=== PATIENT | female | born 1985 | race Caucasian/White ===

== ENCOUNTER 2017-11-11 05:41 | Inpatient (IN) | payer OTHER ==
--- NOTE | 2017-10-30 14:51 | PAT Medication Instructions ---
Service Date Oct 30, 2017. Current Home Medication List Albuterol Hfa (Ventolin Hfa), 2-4 PUFFS INH Q6H PRN for SOB/Wheezing Calcium Carbonate (Tums), 1 TAB PO for Indigestion Cetirizine Hcl (Zyrtec), 10 MG PO QPM Cholecalciferol (Vitamin D-1000), 1 CAP PO QPM Multivit (), 1 TAB PO QPM Medication Instructions For Your Scheduled Surgery - Hold the following medications the morning of surgery: Calcium Carbonate (Tums), 1 TAB PO for Indigestion - Take the following medications the morning of surgery with a sip of water: Albuterol Hfa (Ventolin Hfa), 2-4 PUFFS INH Q6H PRN for SOB/Wheezing (if needed) - Take the following medications as scheduled the night before surgery: Albuterol Hfa (Ventolin Hfa), 2-4 PUFFS INH Q6H PRN for SOB/Wheezing (if needed) Calcium Carbonate (Tums), 1 TAB PO for Indigestion (if needed) Cetirizine Hcl (Zyrtec), 10 MG PO QPM Cholecalciferol (Vitamin D-1000), 1 CAP PO QPM Multivit (), 1 TAB PO QPM If you have any questions please call us at [phone] or [phone] or [phone]
[2017-10-30 16:10] LABS: BASO % 0.1 %; BASO ABS # 0.01 K/uL (0-0.2); EOS % 0.8 %; EOS ABS # 0.07 K/uL (0-0.5); HEMATOCRIT 37.3 % (37-47); HEMOGLOBIN 12.5 g/dL (12.0-16.0); IG# 0.08 K/uL (0.00-0.02); LYMPH % 16.8 %; LYMPH ABS # 1.55 K/uL (1.2-3.4); MEAN CELL VOLUME 92.6 fL (80-100); MEAN CORPUSCULAR HGB CONC 33.5 g/dl (32-36); MEAN PLATELET VOLUME 11.3 fL (7.4-10.4); MONO % 7.3 %; MONO ABS # 0.67 K/uL (0.11-0.59); NEUT % 74.1 %; NEUT ABS # 6.85 K/uL (1.4-6.5); PLATELET COUNT 277 K/uL (130-400); RED CELL DISTRIBUTION WIDTH CV 14.2 % (11.5-14.5); RED CELL DISTRIBUTION WIDTH SD 48.6 fL (36.4-46.3); WHITE BLOOD COUNT 9.23 K/uL (4.8-10.8)
[~2017-11-11] VITALS: Ht 172.7 cm; Wt 144.1 kg
[2017-11-11] VITALS (18 sets, daily range): BP systolic 105–129; BP diastolic 69–77; PULSE 72–86; TEMP 36.4–36.7; O2SAT 94–98; Ht 172.7 cm; Wt 144.1 kg
[~2017-11-11 05:41] MED LIST: CALC500C3 PO; CETI10TA10 PO; CHOL100040 PO; PRENTAB65 PO; VNTHFA/IN INH
[2017-11-11] MEDS ORDERED: CEFAZOLIN IV 3,000 MG in SYRINGE 0 ML IV SCH (06:00)
[2017-11-11] MEDS ORDERED: LACTATED RINGER'S 1000ML 1,000 ML IV SCH ×2 (06:00→09:17)
[2017-11-11] MEDS ORDERED: CITRIC ACID/SODIUM CITRATE 15 ML UDC PO SCH (06:00)
[2017-11-11] MEDS: LACTATED RINGER'S 1000ML 1,000 ML IV SCH ×2 (06:43→14:47)
[2017-11-11 06:50] LABS: BASO % 0.2 %; BASO ABS # 0.02 K/uL (0-0.2); EOS ABS # 0.12 K/uL (0-0.5); HEMATOCRIT 38.1 % (37-47); HEMOGLOBIN 12.8 g/dL (12.0-16.0); IG# 0.13 K/uL (0.00-0.02); LYMPH % 19.5 %; LYMPH ABS # 2.32 K/uL (1.2-3.4); MEAN CORPUSCULAR HEMOGLOBIN 30.9 pg (25-34); MEAN CORPUSCULAR HGB CONC 33.6 g/dl (32-36); MEAN PLATELET VOLUME 11.6 fL (7.4-10.4); MONO % 6.1 %; MONO ABS # 0.72 K/uL (0.11-0.59); NEUT % 72.1 %; NEUT ABS # 8.59 K/uL (1.4-6.5); PLATELET COUNT 269 K/uL (130-400); RED CELL DISTRIBUTION WIDTH CV 14.4 % (11.5-14.5); RED CELL DISTRIBUTION WIDTH SD 48.4 fL (36.4-46.3)
--- NOTE | 2017-11-11 07:12 | History & Physical Bridge Note ---
H&P Re-Evaluation Bridge Note: I have examined the patient, reviewed the History & Physical and in the interval since the performance of the History & Physical I have noted the following changes of clinical significance: No changes noted
[2017-11-11] MEDS ORDERED: FENTANYL CITRATE INJ 50 MCG/1 ML 2 ML VIAL ONE (07:26)
[2017-11-11] MEDS ORDERED: MoRPHine SULFATE PF 1 MG/ML 10 ML AMP/VIAL ONE (07:26)
[2017-11-11] MEDS ORDERED: OXYTOCIN INJ 10 UNITS/ML VIAL ONE (07:27)
[2017-11-11] MEDS ORDERED: PHENYLEPHRINE 100MCG/ML 5ML SYR ONE (07:46)
[2017-11-11] MEDS ORDERED: ONDANSETRON INJ 2 MG/ML 2 ML VIAL ONE (07:46)
[2017-11-11] MEDS ORDERED: NALOXONE HCL INJ 1 MG in SODIUM CHLORIDE 0.9% 1000ML 1,000 ML IV PRN (08:42)
[2017-11-11] MEDS ORDERED: NALOXONE HCL INJ 0.08 MG in SYRINGE 1.8 ML IV PRN (08:42)
[2017-11-11] MEDS ORDERED: SODIUM CHLORIDE 0.9% 1000ML 1,000 ML IV PRN (08:42)
[2017-11-11] MEDS ORDERED: LACTATED RINGER'S 1000ML 500 ML IV PRN (08:42)
[2017-11-11] MEDS ORDERED: NALBUPHINE HCL INJ 10 MG/ML 1ML AMP IV PRN (08:45)
[2017-11-11] MEDS ORDERED: EpHEDrine SULFATE INJ 50 MG/ML AMP IV PRN (08:45)
[2017-11-11] MEDS ORDERED: DiphenhydrAMINE HCL 50 MG/ML VIAL IV PRN (08:45)
[2017-11-11] MEDS ORDERED: ONDANSETRON INJ 2 MG/ML 2 ML VIAL IV PRN (08:45)
[2017-11-11] MEDS ORDERED: MoRPHine SULFATE 2 MG/ML CARP IV PRN (08:45)
[2017-11-11] MEDS ORDERED: MoRPHine SULFATE PF 1 MG/ML 10 ML AMP/VIAL EPI PRN (08:45)
[2017-11-11] MEDS ORDERED: NALOXONE HCL 0.4 MG/1 ML VIAL/CARP IV PRN (08:45)
[2017-11-11] MEDS ORDERED: NO NARCOTICS OR SEDATIVES SCH (08:45)
[2017-11-11] MEDS ORDERED: MEPERIDINE HCL 25 MG/ML CARP IV PRN (08:45)
--- NOTE | 2017-11-11 09:17 | [facility] Post Operative Brief Note ---
Immediate Operative Summary Operative Date Nov 11, 2017. Pre-Operative Diagnosis Term :Breech Presentation Post-Operative Diagnosis Same Procedure(s) Performed Primary Low Transverse Caesarean Section; Delivery of a live female child at 0803, left ovarian cystectomy Surgeon Dr Lawrence Dental Services Director Surgeon(s) Dr De Luna Estimated Blood Loss 700 cc Findings Consistent with Post-Op Diagnosis Fluids (cc crystalloids) 2700 ml Specimens cord blood placenta-exam private cord blood and tissue collection left ovarian cyst and fluid from cyst Drains tot 200 ml Anesthesia Type Spinal Complication(s) none Disposition Disposition: L&D Overlapping Procedure I was present for: entire case
[2017-11-11] MEDS ORDERED: LANOLIN OINT EXT PRN (09:30)
[2017-11-11] MEDS ORDERED: SUPERCREAM 0.870 % 15GM JAR EXT PRN (09:30)
[2017-11-11] MEDS ORDERED: MEASLES, MUMPS & RUBELLA VIRUS VIAL SQ. ONE (09:30)
[2017-11-11] MEDS ORDERED: DIPHTHERIA/TETANUS/PERTUSSIS 0.5 ML SYR/VIAL IM. ONE (09:30)
[2017-11-11] MEDS ORDERED: SENNA 8.6 MG TAB PO PRN (09:30)
[2017-11-11] MEDS ORDERED: CEFAZOLIN IV 3,000 MG in DEXTROSE 5% 50ML 50 ML IV SCH (09:30)
[2017-11-11] MEDS ORDERED: HYDROCORTISONE ACETATE 25 MG SUPP PR PRN (09:30)
[2017-11-11] MEDS ORDERED: BENZOCAINE 20% AER SPR 82.5 GM CAN EXT PRN (09:30)
[2017-11-11] MEDS ORDERED: MAGNESIUM HYDROXIDE SUSP 30 ML UDC PO PRN (09:30)
[2017-11-11] MEDS: OXYTOCIN INJ 20 UNITS in LACTATED RINGER'S 1000ML 1,000 ML IV SCH ×2 (10:32→18:57)
--- NOTE | 2017-11-11 10:57 | Anesthesiology Progress Note ---
Anesthesia Post Op Note Date & Time Nov 11, 2017 at 10:56 Notes Mental Status: alert / awake / arousable, participated in evaluation Pt Amnestic to Procedure: Yes Nausea / Vomiting: adequately controlled Pain: adequately controlled Airway Patency, RR, SpO2: stable & adequate BP & HR: stable & adequate Hydration State: stable & adequate Neuraxial Anesthesia: was administered, sensory block is resolving Anesthetic Complications: no major complications apparent
--- NOTE | 2017-11-11 11:42 | OPERATIVE REPORT ---
DATE OF OPERATION: 11/11/2017 PREOPERATIVE DIAGNOSES: Patient is a 32-year-old G1, P0 at 39 weeks and 1 day of gestation with persistent breech presentation at term, declined external cephalic version and left ovarian simple cyst. POSTOPERATIVE DIAGNOSES: Patient is a 32-year-old G1, P0 at 39 weeks and 1 day of gestation with persistent breech presentation at term, declined external cephalic version and left ovarian simple cyst. PROCEDURE: Primary low transverse via Pfannenstiel skin incision, delivery of a viable female infant and left ovarian cystectomy. SURGEON: Barron Donato MD. GUIDEMAN: Darius De Luna MD. ESTIMATED BLOOD LOSS: 700 mL FLUIDS: 2700 mL DRAINS: Jhaveri drained 200 mL of clear urine. ANESTHESIA: Spinal, Dr. Ryan. COMPLICATIONS: None. FINDINGS: Baby was a viable female infant in the jona breech presentation, Apgars 8/9, delivered at 08:03 a.m. Weight was 4190 grams. Maternal findings, normal uterus, fallopian tubes and right ovary and there was a simple cyst in the left ovary which was about 8 x 10 cm in size. DESCRIPTION OF PROCEDURE: The patient was taken to the operating room where spinal anesthesia was given without difficulty. She was placed in dorsal supine position with a leftward tilt. She was prepared and draped in usual sterile fashion. A Pfannenstiel skin incision was made and carried through to the underlying layer of fascia with the Bovie. Fascia was incised in the midline. Incision was extended laterally with the help of Garcia scissors. Upper aspect of the fascial incision was then grasped with 2 Uziel clamps, elevated, underlying rectus muscles were dissected off sharply with Garcia scissors and the lower aspect of the fascial incision was then grasped with 2 Uziel clamps, elevated, and the rectus muscles were dissected sharply with Garcia scissors. Rectus muscles were in the midline. Peritoneum was identified, entered bluntly with fingers. Peritoneal incision was extended superiorly and inferiorly with good visualization of the bladder. Bladder blade was inserted and vesicouterine peritoneum was identified, grasped with pickups, entered sharply with Metzenbaum scissors and the bladder flap was created digitally and bladder blade was reinserted to retract the bladder. Lower uterine segment was incised in a transverse fashion. Incision was extended laterally with the help of fingers and amniotic bag was ruptured. Clear fluid was obtained. Then the baby's buttocks were held and brought to the incision and delivered without difficulty and then legs and then trunk and then arms in flexion position and then head without difficulty. Mouth and nose were suctioned. Cord was clamped x2 and cut. It was 3 vessels cord. Baby was handed to the waiting netsuite consultant and nursery team. Then cord blood was obtained. Per patient request cord blood was collected into [facility] collection kit. Then placenta was delivered manually as intact and complete. Uterus was exteriorized, cleared of all clots and debris. Fundus was firm. The uterine incision was repaired with 0 Vicryl in a running locked fashion and a second imbricating layer was placed with another 0 Vicryl in a running locked fashion. Excellent hemostasis was achieved. Then the visceral peritoneum was reapproximated with 2-0 chromic in a running fashion. The right ovary and fallopian tube was visualized to be normal. The left ovary was in the field and enlarged with clear fluid filled simple cyst , about 8x10 cm. The with a large bore needle, the cyst fluid was drained and sent for cytology and then ovarian capsule was incised with the Metzenbaum scissors and then the cyst capsule was dissected off from the ovarian capsule which was stretched and thinned due to enlarge cyst in it. Cyst capsule was dissected off completely from the ovary and sent to the pathology. The ovarian bed was oozing small blood, the small vessels were coagulated with the tip of Bovie and then ovary was irrigated and then FloSeal was placed for hemostasis . Excellent hemostasis was achieved. Then ovarian tissue was reapproximated/closed with 3-0 Vicryl in a running fashion. It was hemostatic. Uterine Incision was checked to be again hemostatic. Uterus was returned to the abdomen. Pelvis was irrigated with warm normal saline and suctioned and then parietal peritoneum was reapproximated with 3-0 Vicryl in a running fashion. Rectus muscles were reapproximated with the same suture in a running fashion. The rectus muscles and overlying fascia were checked to be hemostatic. The rectus fascia was reapproximated with running fashion with #1 Vicryls starting from both corners meeting in the midline and the subcuticular fat tissue was reapproximated with 2-0 Vicryl in a running fashion. Skin was closed with 4-0 Monocryl in a subcuticular fashion. The patient tolerated the procedure well. Sponge, lap, needle count was correct x3. She was given 3 grams of cefazolin before surgery. She was taken to recovery room in stable condition. No complications happened and I was present and Dr. De Luna was present during whole procedure. I attest to the content of the Intraoperative Record and any orders documented therein. Any exceptions are noted below. CARLA
[2017-11-11] MEDS: KETOROLAC TROMETHAMINE 30 MG/ML VIAL IV. PRN ×2 (12:17→19:47)
[2017-11-11] MEDS: SIMETHICONE 80 MG CHEW PO SCH ×3 (12:18→19:46)
[2017-11-11] MEDS ORDERED: ACETAMINOPHEN IV 650 MG in EMPTY BAG 0 ML IV PRN (13:00)
--- NOTE | 2017-11-11 15:21 | OB/GYN Progress Note ---
CENTERLESS GRINDER TENDER Progress Note Date of Service: Nov 11, 2017. Postop check Patient is seen and examined Feels well, no complaints Pain is under control with meds No CP/ SOB/ Dizziness/ N&V/ VB/ Leg pain Not OOB yet Tolerating clears Explained about the surgery and findings Her O2 sats were low to 88% while sleeping Patient has h/o snoring and feeling " choked" at time at night for the last 3-4 weeks of Never diagnosed with GLENYS. h/o exercise induced asthma, uses inhaler 1-2 times a year. O2 sats 98% on RA while awake. Date Time Temp Pulse Resp B/P (MAP) Pulse Ox O2 Delivery O2 Flow Rate FiO2 11/11/17 13:25 77 16 97 Room Air 11/11/17 13:15 36.4 72 16 122/75 (91) 97 Room Air 11/11/17 13:15 16 97 11/11/17 12:30 16 96 11/11/17 12:15 36.4 79 16 116/72 (87) 96 Room Air 11/11/17 11:35 16 96 11/11/17 11:35 96 Room Air 11/11/17 11:35 36.4 79 16 116/69 (85) 96 Room Air 11/11/17 11:35 96 Room Air PE: General: Alert, orientedx3, NAD CVS: S1S2 RRR Lungs: CTAB Abd: soft, NT, ND, BS+, Dressing C/D/I No VB Ext: NT, no edema, SCD's on AP: 32 yo female with class III obesity, s/p P Csection and left ovarian cystectomy , pod#0 VSS Afebrile doing well O2 sats lower while sleep, most likely GLENYS, seen by respiratory therapist Will keep upright and nasal O2 while sleeping, avoid narcotics, Toradol and IV tylenol for pain Continue to routine postop care Encourage PO intake, may ambulate D/C ott in am
[2017-11-11] MEDS: CEFAZOLIN IV 3,000 MG in SYRINGE 0 ML IV SCH ×2 (15:57→23:36)
[2017-11-11] MEDS: DOCUSATE SODIUM 100 MG CAP PO SCH (19:46)
[2017-11-12] VITALS (8 sets, daily range): BP systolic 98–122; BP diastolic 62–77; PULSE 88–101; TEMP 36.7–37.2; O2SAT 94–98
[2017-11-12] MEDS: KETOROLAC TROMETHAMINE 30 MG/ML VIAL IV. PRN (01:41)
[2017-11-12] MEDS ORDERED: PROMETHAZINE HCL INJ 25 MG in SODIUM CHLORIDE 0.9% 50ML 50 ML IV PRN (02:00)
[2017-11-12] MEDS ORDERED: OXYCODONE/ACETAMINOPHEN 5-325 TAB PO PRN (02:00)
[2017-11-12] MEDS ORDERED: DC INTRASPINAL MORPHINE ONE (02:00)
[2017-11-12] MEDS ORDERED: KETOROLAC TROMETHAMINE 30 MG/ML VIAL IV. PRN (02:00)
[2017-11-12] MEDS ORDERED: DiphenhydrAMINE HCL 50 MG/ML VIAL IV PRN (02:00)
[2017-11-12] MEDS ORDERED: ONDANSETRON INJ 2 MG/ML 2 ML VIAL IV PRN (02:00)
[2017-11-12] MEDS ORDERED: MEPERIDINE HCL 50 MG/ML CARP IV PRN ×2 (02:00)
[2017-11-12 06:25] LABS: BASO % 0.1 %; BASO ABS # 0.01 K/uL (0-0.2); EOS % 0.8 %; EOS ABS # 0.09 K/uL (0-0.5); HEMOGLOBIN 11.3 g/dL (12.0-16.0); IG# 0.07 K/uL (0.00-0.02); LYMPH % 12.3 %; LYMPH ABS # 1.43 K/uL (1.2-3.4); MEAN CELL VOLUME 91.6 fL (80-100); MEAN CORPUSCULAR HEMOGLOBIN 30.5 pg (25-34); MEAN CORPUSCULAR HGB CONC 33.2 g/dl (32-36); MEAN PLATELET VOLUME 10.9 fL (7.4-10.4); MONO % 5.9 %; MONO ABS # 0.68 K/uL (0.11-0.59); NEUT % 80.3 %; NEUT ABS # 9.33 K/uL (1.4-6.5); PLATELET COUNT 196 K/uL (130-400); RED CELL DISTRIBUTION WIDTH CV 14.3 % (11.5-14.5); RED CELL DISTRIBUTION WIDTH SD 48.5 fL (36.4-46.3); WHITE BLOOD COUNT 11.61 K/uL (4.8-10.8)
--- NOTE | 2017-11-12 07:36 | Progress Note ---
Subjective Nov 12, 2017. Subjective conversation w/ patient Ambulation: limited ambulation Voiding: no voiding problems Passing Gas: No Diet Tolerance: Clear Liquids Lochia: Small Feeding Type: Breast Feeding Review of Systems Constitutional: + fever Objective Vital Signs Date Time Temp Pulse Resp B/P (MAP) Pulse Ox O2 Delivery O2 Flow Rate FiO2 11/12/17 06:00 98 Room Air 11/12/17 05:40 96 Nasal Cannula 2.0 11/12/17 03:20 37.2 88 18 109/75 (86) 97 Room Air 11/12/17 00:05 18 94 11/11/17 23:05 36.7 86 18 115/76 (89) Room Air 11/11/17 23:05 18 95 11/11/17 23:00 96 Room Air 11/11/17 22:12 18 98 11/11/17 22:11 98 Nasal Cannula 2.0 11/11/17 22:05 95 Nasal Cannula 2.0 11/11/17 21:15 18 95 11/11/17 20:00 18 95 11/11/17 20:00 36.7 75 18 105/71 (82) Room Air 11/11/17 20:00 95 Room Air 11/11/17 19:15 18 95 11/11/17 18:30 16 94 11/11/17 17:30 16 95 11/11/17 16:10 36.5 81 16 129/77 (94) 95 Room Air 11/11/17 16:10 16 95 11/11/17 15:30 16 96 11/11/17 14:30 16 94 11/11/17 13:25 77 16 97 Room Air 11/11/17 13:15 36.4 72 16 122/75 (91) 97 Room Air 11/11/17 13:15 16 97 11/11/17 12:30 16 96 11/11/17 12:15 36.4 79 16 116/72 (87) 96 Room Air 11/11/17 11:35 16 96 11/11/17 11:35 96 Room Air 11/11/17 11:35 36.4 79 16 116/69 (85) 96 Room Air 11/11/17 11:35 96 Room Air Physical Exam General Appearance: WELL-APPEARING Respiratory/Chest: lungs clear Abdomen: normal bowel sounds, non tender Fundus: Firm, Non-Tender Incision Description: Clean, Dry & Intact Extremities: no pedal edema, no calf tenderness Laboratory Results Last 24 Hours Test 11/12/17 06:08 White Blood Count 11.61 K/uL Red Blood Count 3.71 M/uL Hemoglobin 11.3 g/dL Hematocrit 34.0 % Mean Corpuscular Volume 91.6 fL Mean Corpuscular Hemoglobin 30.5 pg Mean Corpuscular Hemoglobin Concent 33.2 g/dl Platelet Count 196 K/uL Mean Platelet Volume 10.9 fL Neutrophils (%) (Auto) 80.3 % Lymphocytes (%) (Auto) 12.3 % Monocytes (%) (Auto) 5.9 % Eosinophils (%) (Auto) 0.8 % Basophils (%) (Auto) 0.1 % Neutrophils # (Auto) 9.33 K/uL Lymphocytes # (Auto) 1.43 K/uL Monocytes # (Auto) 0.68 K/uL Eosinophils # (Auto) 0.09 K/uL Basophils # (Auto) 0.01 K/uL RDW Standard Deviation 48.5 fL RDW Coefficient of Variation 14.3 % Immature Granulocyte % (Auto) 0.6 % Immature Granulocyte # (Auto) 0.07 K/uL Assessment and Plan Post-Op Day#: 1 Continue Routine Care: bandage removed
[2017-11-12] MEDS: DOCUSATE SODIUM 100 MG CAP PO SCH ×2 (09:39→20:13)
[2017-11-12] MEDS: PRENATAL VITAMIN TAB PO SCH (09:39)
[2017-11-12] MEDS: SIMETHICONE 80 MG CHEW PO SCH ×4 (09:39→20:14)
[2017-11-12] MEDS: FERROUS SULFATE 325 MG TAB PO SCH (09:39)
[2017-11-12] MEDS: CHOLECALCIFEROL 1000 INTER.UNIT TAB PO SCH (09:39)
[2017-11-12] MEDS: CETIRIZINE HCL 10 MG TAB PO SCH (09:39)
[2017-11-12] MEDS: OXYCODONE/ACETAMINOPHEN 5-325 TAB PO PRN ×4 (09:40→22:35)
[2017-11-12] MEDS: IBUPROFEN 600 MG TAB PO PRN ×4 (09:41→22:34)
[2017-11-12] MEDS: AMOXICILLIN/CLAVULANATE TAB 875 MG TAB PO SCH (17:44)
[2017-11-12] MEDS ORDERED: BISACODYL 5 MG TABEC PO ONE (22:00)
[2017-11-13 06:39] LABS: HEMATOCRIT 32.8 % (37-47); HEMOGLOBIN 10.7 g/dL (12.0-16.0)
[2017-11-13] MEDS: IBUPROFEN 600 MG TAB PO PRN ×4 (06:46→21:01)
[2017-11-13] MEDS: OXYCODONE/ACETAMINOPHEN 5-325 TAB PO PRN ×5 (06:46→21:01)
--- NOTE | 2017-11-13 07:41 | OB/GYN Progress Note ---
NET DEVELOPMENT MANAGER Progress Note Date of Service: Nov 13, 2017. Patient is seen and examined. She feels well, no complaints. Pain is under control with oral meds. Ambulating without dizziness Voiding without difficulty Tolerating regular diet with out N&V Flatus + BM neg Bleeding is minimal No fever/ chills/ CP/ SOB/ N&V/ Leg pain Breast feeding, milk has not come yet, supplementing with formula and pumping Date Time Temp Pulse Resp B/P (MAP) Pulse Ox O2 Delivery O2 Flow Rate FiO2 11/12/17 23:30 36.9 101 20 122/68 (86) Room Air 11/12/17 23:30 Room Air 11/12/17 16:00 36.8 100 16 98/62 (74) 97 Room Air 11/12/17 08:15 96 Room Air 11/12/17 08:01 36.7 90 20 115/77 (90) 96 Room Air Last 24 Hours Test 11/13/17 06:27 Hemoglobin 10.7 g/dL Hematocrit 32.8 % PE: General: Alert, orientedx3, NAD CVS: S1S2 RRR Lungs; CTAB Abd: soft, NT, ND, BS+, fundus firm, below Umbilicus Incision: Clean, dry, intact Perineum intact, Lochia rubra minimal Ext; NT, no edema AP: 32 yo s/p C Section, pod# 2 VSS Afebrile doing well Continue routine postop care Encourage ambulation, PO intake All questions were answered D/C home tomorrow
[2017-11-13 07:45] VITALS: BP 119/77; PULSE 93; TEMP 36.5; O2SAT 97
[2017-11-13] MEDS: SIMETHICONE 80 MG CHEW PO SCH ×4 (08:00→20:00)
[2017-11-13] MEDS: CETIRIZINE HCL 10 MG TAB PO SCH (08:14)
[2017-11-13] MEDS: DOCUSATE SODIUM 100 MG CAP PO SCH ×2 (08:14→19:51)
[2017-11-13] MEDS: CHOLECALCIFEROL 1000 INTER.UNIT TAB PO SCH (08:14)
[2017-11-13] MEDS: PRENATAL VITAMIN TAB PO SCH (08:14)
[2017-11-13] MEDS: AMOXICILLIN/CLAVULANATE TAB 875 MG TAB PO SCH ×2 (08:14→17:53)
[2017-11-13] MEDS: FERROUS SULFATE 325 MG TAB PO SCH (08:15)
[2017-11-13] MEDS ORDERED: BISACODYL 10 MG SUPP PR PRN (09:30)
[2017-11-13 16:15] VITALS: BP 113/75; PULSE 91; TEMP 36.7
[2017-11-13 20:00] VITALS: BP 119/81; PULSE 84; TEMP 36.6; O2SAT 98
[2017-11-13 23:45] VITALS: BP 118/76; PULSE 85; TEMP 36.6; O2SAT 98
[2017-11-14] MEDS: IBUPROFEN 600 MG TAB PO PRN ×3 (01:04→13:05)
[2017-11-14] MEDS: OXYCODONE/ACETAMINOPHEN 5-325 TAB PO PRN ×3 (01:06→13:06)
[2017-11-14 07:52] VITALS: BP 107/69; PULSE 92; TEMP 36.5; O2SAT 96
[2017-11-14 08:00] VITALS: O2SAT 96
[2017-11-14] MEDS: SIMETHICONE 80 MG CHEW PO SCH ×2 (08:00→12:00)
[2017-11-14] MEDS: PRENATAL VITAMIN TAB PO SCH (08:05)
[2017-11-14] MEDS: CETIRIZINE HCL 10 MG TAB PO SCH (08:05)
[2017-11-14] MEDS: AMOXICILLIN/CLAVULANATE TAB 875 MG TAB PO SCH (08:05)
[2017-11-14] MEDS: DOCUSATE SODIUM 100 MG CAP PO SCH (08:05)
[2017-11-14] MEDS: FERROUS SULFATE 325 MG TAB PO SCH (08:05)
[2017-11-14] MEDS: CHOLECALCIFEROL 1000 INTER.UNIT TAB PO SCH (08:05)
[2017-11-14] MEDS ORDERED: SODIUM CHLORIDE 0.65% NA SOLN 45 ML (OCEAN) ONE (09:01)
--- NOTE | 2017-11-14 11:10 | Progress Note ---
Subjective Nov 14, 2017. Subjective conversation w/ patient Voiding: no voiding problems Passing Gas: Yes Diet Tolerance: Regular Diet Lochia: Moderate Feeding Type: Breast Feeding Comment: Pain controlled Review of Systems Constitutional: No fever, No chills, No sweats, No weight loss, No weakness, No fatigue, No problem reported Respiratory: No cough, No sputum, No wheezing, No shortness of breath, No dyspnea on exertion, No dyspnea at rest, No hemoptysis, No problem reported Cardiac: No chest pain, No orthopnea, No PND, No edema, No claudication, No palpitations, No problem reported Breast: No see HPI, No breast lump, No change in shape, No nipple discharge, No breast pain, No problem reported Abdomen: No pain, No nausea, No vomiting, No diarrhea, No constipation, No GI bleeding, No problem reported Female : No see HPI, No dysuria, No urinary frequency, No hematuria, No incontinence, No abnormal vaginal bleeding, No vaginal discharge, No problem reported Objective Vital Signs Date Time Temp Pulse Resp B/P (MAP) Pulse Ox O2 Delivery O2 Flow Rate FiO2 11/14/17 08:00 96 Room Air 11/14/17 07:52 36.5 92 16 107/69 (82) 96 Room Air 11/13/17 23:45 36.6 85 20 118/76 (90) 98 Room Air 11/13/17 23:45 Room Air 11/13/17 20:00 36.6 84 18 119/81 (94) 98 Room Air 11/13/17 16:15 36.7 91 18 113/75 (88) Room Air 11/13/17 16:15 Room Air Physical Exam General Appearance: WELL-APPEARING, NO APPARENT DISTRESS Fundus: Firm Incision Description: Clean, Dry & Intact Assessment and Plan Problem List S/P Primary section doing well Discharge home Post-Op Day#: 1 Continue Routine Care: Discharge home
[2017-11-14] MEDS ORDERED: OXYC-57 PO (11:20)
--- NOTE | 2017-11-14 11:23 | Discharge Instructions ---
Discharge Instructions Date of Service Nov 14, 2017. Admission Reason for Admission: Breech Discharge Discharge Diagnosis / Problem: Breech fetus Discharge Goals Goal(s): Routine recovery after Activity Recommendations Activity Limitations: per Instructions/Follow-up section Lifting Limitations: no more than 10 pounds Exercise/Sports Limitations: until after follow-up appointment May Resume Sexual Activity: after follow-up appointment Shower/Bathe: keep incision dry . Instructions / Follow-Up Instructions / Follow-Up 1 week Current Hospital Diet Patient's current hospital diet: Regular OB Diet Discharge Diet Recommended Diet: Regular Diet Procedures Procedures Performed: Primary Low Transverse Caesarean Section; Delivery of a live female child at 0803, left ovarian cystectomy Pending Studies Studies pending at discharge: no Medical Emergencies . Who to Call and When: Medical Emergencies: If at any time you feel your situation is an emergency, please call 911 immediately. . Non-Emergent Contact Non-Emergency issues call your: Sonar Subsystem Equipment Operator Call Non-Emergent contact if: you have a fever, your pain is not controlled, wound has increased drainage, wound has increased redness, wound has increased pain . . "Provider Documentation" section prepared by Janeen Ramírez. .
[2017-11-14 15:50] VITALS: BP_DIAS 69; PULSE 92; TEMP 36.5
== END 2017-11-14 15:45 | disposition home or self-care (01) | DRG 766 ==
LOC: C.LD 05:41 → EDSTATUS 07:30 → C.OBG 11:31
PROVIDERS: ADMIT Obstetrics & Gynecology; ATTEND Obstetrics & Gynecology
PROC: 0UB10ZX Excision of Left Ovary, Open Approach, Diagnostic (ICD-10-PCS; principal; 2017-11-11 07:30)
PROC: 10D00Z1 Extraction of Products of Conception, Low, Open Approach (ICD-10-PCS; principal; 2017-11-11 07:30)
DX: O32.1XX0 Maternal care for breech presentation, not applicable or unspecified (principal); O34.83 Maternal care for other abnormalities of pelvic organs, third trimester; O99.214 Obesity complicating childbirth; N83.202 Unspecified ovarian cyst, left side; Z37.0 Single live birth; Z3A.39 39 weeks gestation of pregnancy

== ENCOUNTER 2022-06-18 16:31 | Inpatient (IN) ==
[2022-06-18 17:21] LABS: Basophils # (auto) 0.01 K/uL (0-0.2); Basophils % (auto) 0.2 %; Hematocrit (blood only) 40.1 % (37.0-47.0); Hemoglobin 13.6 g/dl (12.0-16.0); Immature Granulocytes # (auto) 0.02 K/uL (0.01-0.20); Immature Granulocytes % (auto) 0.4 %; Lymphocytes # (auto) 0.42 K/uL (1.2-3.4); Lymphocytes % (auto) 8.2 %; Mean Corpuscular Hgb Conc 33.9 g/dL (32.0-36.0); Mean Corpuscular Volume 88.5 fL (80.0-100.0); Mean Platelet Volume 10.9 fL (9.4-12.4); Monocytes # (auto) 0.12 K/uL (0.11-0.59); Monocytes % (auto) 2.3 %; Neutrophils # (auto) 4.55 K/uL (1.40-6.50); Neutrophils % (auto) 88.9 %; Platelet Count 269 K/uL (130-400); RDW Coefficient of Variation 13.2 % (11.5-14.5); RDW Standard Deviation 42.9 fL (36.4-46.3); Red Blood Count 4.53 M/uL (4.20-5.40); White Blood Count 5.12 K/ul (4.8-10.8)
[2022-06-18 17:34] LABS: Albumin Globulin Ratio 1.4 (0.9-2); Albumin Level 4.4 gm/dl (3.4-5.0); BUN Creatinine Ratio 10.4 (10-20); Bilirubin,Total 0.6 mg/dl (0.2-1.0); Calcium 8.6 mg/dl (8.5-10.1); Est GFR (African American) 87.6 ml/min; Est GFR (Non-African American) 75.6 ml/min; Globulin 3.2 gm/dl (2.5-4.0); Potassium 4.1 mmol/L (3.5-5.1); Total Protein 7.6 gm/dl (6.0-8.3)
[2022-06-18 17:40] LABS: Troponin I High Sensitivity 3.7 pg/ml (0-14)
[2022-06-18 17:53] LABS: Partial Thromboplastin Ratio 1.1; Partial Thromboplastin Time 30.5 Seconds (21.0-31.0); Prothrombin Time 10.9 Seconds (9.0-12.0)
--- NOTE | 2022-06-18 18:26 | XRay Report ---
SINGLE VIEW CHEST CLINICAL HISTORY: Dyspnea FINDINGS: 2 AP, portable, upright chest radiographs are obtained. No prior studies are available for comparison at the time of dictation. The cardiomediastinal silhouette is unremarkable. The lungs and pleural spaces are clear. No pneumothorax is seen. The bony thorax is grossly intact. IMPRESSION: No active disease in the chest. ACT 112: Negative or not required by law. Electronically signed by: Edwardo Owens M.D. 06/18/2022 6:23 PM
[2022-06-18] MEDS ORDERED: methylPREDNISolone 125 MG/2 ML VIAL IV STA (18:36)
[2022-06-18 18:58] LABS: D Dimer 590 ug/L FEU (0-500)
--- NOTE | 2022-06-18 19:01 | Emergency Department Note ---
Impression & Plan Acute dyspnea, Acute respiratory failure with hypoxia, Pneumonia ED Provider Note HISTORY OF PRESENT ILLNESS: Patient is a 37-year-old female presenting with shortness of breath. Patient reports that she has a history of asthma. Developed a low-grade fever, generalized body aches and some mild shortness of breath over the weekend. She tested negative for COVID and the flu on outpatient testing. She was at her primary care provider's office and referred to the emergency department due to her audible wheezing and hypoxia on room air. Patient denies any DVT or PE history. She denies any history of OCP use. Denies any chest pain. She reports she feels like she cannot take a deep breath. Reports feeling a "rattling" in her chest when she exhale. Denies any lower extremity edema. Patient has had a nonproductive cough for the last 3 days. ROS: as above PHYSICAL EXAM: Constitutional: Patient appears in no acute distress. HENT: Head: Normocephalic and atraumatic. Eyes: EOMI, PERRL Mouth/Throat: Mucous membranes moist. Neck: Trachea midline. Neck supple. Cardiovascular: RRR, No murmurs, rubs or gallops. Intact distal pulses. Pulmonary/Chest: No respiratory distress. Breath sounds clear and equal b ilaterally. No wheezes or rales. Patient is on 2L nasal cannula with saturations of 94% Abdominal: BS +. Abdomen soft, no tenderness, rebound or guarding. Back: No midline spinal tenderness, no paraspinal tenderness, no CVA tenderness. Musculoskeletal: No edema, tenderness or deformity noted. Skin: Warm and dry. No rash, erythema, pallor or cyanosis Psychiatric: Appropriate mood and affect for situation. Neurological: Alert and keenly responsive. CN II-XII grossly intact, moving all extremities equally and fully. MDM: - Vitals signs showed hypoxia and hypertension. Patient was placed on supplemental oxygen. - History obtained via patient. Patient presents with shortness of breath. Reports having progressively worsening shortness of breath over the last 3 days. She had body aches and low-grade fevers 3 days ago and had a negative COVID and flu test. She was seen by her primary doctor today and had audible wheezing and was hypoxic and referred to the emergency department. Patient denies any OCP use. Denies any lower extremity edema. Denies any DVT or PE history. She has a prior history of asthma. - Chronic conditions affecting care: asthma - Differential diagnoses include, but are not limited to: acute coronary syndrome; asthma exacerbation; pulmonary edema; pulmonary embolism; pneumonia; pneumothorax; viral syndrome - Order placed for continuous cardiac monitoring. At this time, monitor showed rate of 100 bpm with normal sinus rhythm, per my interpretation. - External medical records reviewed. PCPs note shows that the patient had oxygen saturations of 92 to 93% on room air in clinic today. - EKG reviewed by myself showed normal sinus rhythm. Rate 101 bpm. QTc 435. No acute ischemic changes. No previous EKG to compare to. - Laboratory workup interpreted by myself showed normal WBC; stable e lectrolytes; normal troponin - CXR negative for acute cardiopulmonary pathology, per my interpretation - Regarding PE, the patient is low risk by Wells' criteria. D dimer obtained and elevated. CT PE chest performed and showed multilobular pneumonia (L > R). - Procalcitonin ordered. IV rocephin and azithromycin ordered for pneumonia treatment. - Patient given 125 mg IV solumedrol and a duoneb treatment in the ER. - Attempted to wean patient from supplemental oxygen. However, on room air her saturations decreased to 85% with good wave form. She was placed back on 3L NC. - [employer] respiratory panel ordered to assess for source. - Discussion was had with social scientist about patient's case and need for admission - Hospitalist, Dr. Xiao, consulted for admission - Patient admitted to [facility] for further evaluation and management. ASSESSMENT AND PLAN: Diagnosis: dyspnea; acute hypoxic respiratory failure; multilobular pneumonia Plan: admit Past Med/Surg History Medical History (Updated 06/18/22 @ 20:12 by Radha Samson MD) Acid reflux Asthma exercise induced - rarely uses PRN inh Dermatographic urticaria Need for rhogam due to Rh negative mother Obesity Obesity affecting Supervision of normal intrauterine in multigravida Surgical History History of laparoscopy Previous delivery affecting S/P section S/P cholecystectomy S/P tonsillectomy S/P wisdom tooth extraction Status post breast reduction Family History Grandmother (Paternal) Colorectal cancer Mother Hypertension Father Hypertension Grandmother (Maternal) Myocardial infarction Family/Other Breast cancer Uncle Aneurysm Other No family history of adverse response to anesthesia Denies family history of Ovarian cancer Prostate cancer Social History Smoking Status: Never smoker Second Hand Exposure: No; Hx Alcohol Use: No Hx Substance Use: No Preferred Language: Slovak Communication Ability: Effective Transmitter Engineer In Charge Required: No Beliefs That Will Affect Care: None marital status: Current Living Situation: Spouse and Family Current Living Situation Comment: no pets current occupational status: unemployed current occupation: homemaker Feels Safe at Home: Yes Childhood Exposure to Second-Hand Smoke: No Dental Care, Regularly: Yes Physical Activity Frequency: Does not Exercise Seatbelt Use: always Sunscreen Use: Yes Assistive Devices: None Allergies Allergies Allergy/AdvReac Type Severity Reaction Status Date / Time adhesive Allergy Unknown redness Verified 06/18/22 09:36 Bactrim Allergy Unknown lip Verified 11/11/17 12:17 swelling/hives phenazopyridine Allergy Unknown swelling Verified 06/18/22 09:36 sulfamethoxazole Allergy Unknown lip Verified 06/18/22 09:36 swelling/hives trimethoprim Allergy Unknown lip Verified 06/18/22 09:36 swelling/hives robyn saline eye drops AdvReac Unknown eye/eyelid Uncoded 06/18/22 09:36 redness Home Meds Home Medications Medication Instructions Recorded Confirmed cetirizine 10 mg tablet (Zyrtec) 10 mg PO HS 11/16/18 06/18/22 Previous Rx's Medication Instructions Recorded albuterol sulfate 90 mcg/actuation 2 puff inhalation Q6H PRN wheezing 06/05/22 aerosol inhaler (Proventil HFA) #6.7 grams fluticasone propionate 50 1 spray intranasal DAILY PRN nasal 06/05/22 mcg/actuation nasal congestion #16 grams spray,suspension (Flonase Allergy Relief) benzonatate 200 mg capsule 200 mg PO TID PRN cough #30 caps 06/18/22 prednisone 20 mg tablet 40 mg PO DAILY #10 tabs 06/18/22 Results & Data (ED) Vital Signs Vital Signs - 24 hr 06/18/22 16:37 06/18/22 17:41 06/18/22 16:40 Temperature 36.5 C Temperature Source Temporal Artery Scan Pulse Rate 105 H Pulse Rate [Finger] 99 H Respiratory Rate 20 20 Respiratory Effort / Characteristics Non-Labored Spontaneous Non-Labored Spontaneous Respiratory Depth Normal Normal Blood Pressure 135/80 Blood Pressure [Left Arm] 183/84 H Blood Pressure Mean 98 Blood Pressure Mean [Left Arm] 117 Pulse Oximetry 92 93 Oxygen Delivery Method Room Air Room Air Room Air Oxygen Flow Rate Sepsis Recent Fever Within 48 Hours No Sepsis New/Unexplained Change in Mental Status N/A Sepsis Action Taken by Nursing No Action Required 06/18/22 18:00 06/18/22 18:18 06/18/22 18:51 Temperature Temperature Source Pulse Rate Pulse Rate [Finger] 90 Respiratory Rate 20 Respiratory Effort / Characteristics Non-Labored Spontaneous Respiratory Depth Normal Blood Pressure Blood Pressure [Left Arm] 145/78 H Blood Pressure Mean Blood Pressure Mean [Left Arm] 100 Pulse Oximetry 88 L 94 Oxygen Delivery Method Room Air Nasal Cannula Nasal Cannula Oxygen Flow Rate 1 1 2 Sepsis Recent Fever Within 48 Hours Sepsis New/Unexplained Change in Mental Status Sepsis Action Taken by Nursing 06/18/22 19:33 06/18/22 19:35 06/18/22 19:44 Temperature Temperature Source Pulse Rate 95 H Pulse Rate [Finger] 100 H 109 H Respiratory Rate 24 22 Respiratory Effort / Characteristics Non-Labored Respiratory Depth Normal Blood Pressure Blood Pressure [Left Arm] 130/63 Blood Pressure Mean Blood Pressure Mean [Left Arm] 85 Pulse Oximetry 100 94 Oxygen Delivery Method Nebulizer Room Air Oxygen Flow Rate Sepsis Recent Fever Within 48 Hours Sepsis New/Unexplained Change in Mental Status Sepsis Action Taken by Nursing 06/18/22 19:52 06/18/22 19:58 Temperature Temperature Source Pulse Rate Pulse Rate [Finger] Respiratory Rate Respiratory Effort / Characteristics Respiratory Depth Blood Pressure Blood Pressure [Left Arm] Blood Pressure Mean Blood Pressure Mean [Left Arm] Pulse Oximetry 85 L 94 Oxygen Delivery Method Room Air Nasal Cannula Oxygen Flow Rate 3 Sepsis Recent Fever Within 48 Hours Sepsis New/Unexplained Change in Mental Status Sepsis Action Taken by Nursing Laboratory Data 06/18/22 16:56 06/18/22 16:56 Lab Results 06/18/22 06/18/22 06/18/22 Range/Units 16:56 16:56 16:56 WBC 5.12 (4.8-10.8) K/ul RBC 4.53 (4.20-5.40) M/uL Hgb 13.6 (12.0-16.0) g/dl Hct 40.1 (37.0-47.0) % MCV 88.5 (80.0-100.0) fL MCH 30.0 (25.0-34.0) pg MCHC 33.9 (32.0-36.0) g/dL RDW Std Deviation 42.9 (36.4-46.3) fL RDW Coeff of Felipe 13.2 (11.5-14.5) % Plt Count 269 (130-400) K/uL MPV 10.9 (9.4-12.4) fL Immature Gran % (Auto) 0.4 % Neut % (Auto) 88.9 % Lymph % (Auto) 8.2 % Reeves % (Auto) 2.3 % Eos % (Auto) 0.0 % Baso % (Auto) 0.2 % Neut # (Auto) 4.55 (1.40-6.50) K/uL Lymph # (Auto) 0.42 L (1.2-3.4) K/uL Reeves # (Auto) 0.12 (0.11-0.59) K/uL Eos # (Auto) 0.00 (0-0.50) K/uL Baso # (Auto) 0.01 (0-0.2) K/uL Immature Gran # (Auto) 0.02 (0.01-0.20) K/uL PT 10.9 (9.0-12.0) Seconds INR 1.0 (0.9-1.1) APTT 30.5 (21.0-31.0) Seconds PTT Ratio 1.1 D-Dimer (0-500) ug/L FEU Sodium 136 (136-145) mmol/L Potassium 4.1 (3.5-5.1) mmol/L Chloride 101 (98-107) mmol/L Carbon Dioxide 30 (21-32) mmol/L Anion Gap 5 (3-11) BUN 10 (6-23) mg/dl Creatinine 0.96 (0.6-1.2) mg/dl Est Cr Clr Drug Dosing 119.0 ml/min Est GFR ( Amer) 87.6 ml/min Est GFR (Non-Af Amer) 75.6 ml/min BUN/Creatinine Ratio 10.4 (10-20) Glucose 131 H (70-99(Fasting)) mg/dl Calcium 8.6 (8.5-10.1) mg/dl Magnesium 2.0 (1.7-2.4) mg/dl Total Bilirubin 0.6 (0.2-1.0) mg/dl AST 31 (13-39) U/L ALT 23 (7-52) U/L Alkaline Phosphatase 41 (34-104) U/L Troponin I High Sens 3.7 (0-14) pg/ml Total Protein 7.6 (6.0-8.3) gm/dl Albumin 4.4 (3.4-5.0) gm/dl Globulin 3.2 (2.5-4.0) gm/dl Albumin/Globulin Ratio 1.4 (0.9-2) 06/18/22 Range/Units 16:56 WBC (4.8-10.8) K/ul RBC (4.20-5.40) M/uL Hgb (12.0-16.0) g/dl Hct (37.0-47.0) % MCV (80.0-100.0) fL MCH (25.0-34.0) pg MCHC (32.0-36.0) g/dL RDW Std Deviation (36.4-46.3) fL RDW Coeff of Felipe (11.5-14.5) % Plt Count (130-400) K/uL MPV (9.4-12.4) fL Immature Gran % (Auto) % Neut % (Auto) % Lymph % (Auto) % Reeves % (Auto) % Eos % (Auto) % Baso % (Auto) % Neut # (Auto) (1.40-6.50) K/uL Lymph # (Auto) (1.2-3.4) K/uL Reeves # (Auto) (0.11-0.59) K/uL Eos # (Auto) (0-0.50) K/uL Baso # (Auto) (0-0.2) K/uL Immature Gran # (Auto) (0.01-0.20) K/uL PT (9.0-12.0) Seconds INR (0.9-1.1) APTT (21.0-31.0) Seconds PTT Ratio D-Dimer 590 H* (0-500) ug/L FEU Sodium (136-145) mmol/L Potassium (3.5-5.1) mmol/L Chloride (98-107) mmol/L Carbon Dioxide (21-32) mmol/L Anion Gap (3-11) BUN (6-23) mg/dl Creatinine (0.6-1.2) mg/dl Est Cr Clr Drug Dosing ml/min Est GFR ( Amer) ml/min Est GFR (Non-Af Amer) ml/min BUN/Creatinine Ratio (10-20) Glucose (70-99(Fasting)) mg/dl Calcium (8.5-10.1) mg/dl Magnesium (1.7-2.4) mg/dl Total Bilirubin (0.2-1.0) mg/dl AST (13-39) U/L ALT (7-52) U/L Alkaline Phosphatase (34-104) U/L Troponin I High Sens (0-14) pg/ml Total Protein (6.0-8.3) gm/dl Albumin (3.4-5.0) gm/dl Globulin (2.5-4.0) gm/dl Albumin/Globulin Ratio (0.9-2) Administered Medications Discontinued Medications Albuterol (Albut/Ipratrop 3mg/0.5mg Neb 3 Ml Vial) 3 ml NEB NOW STA; Protocol Stop: 06/18/22 19:04 Last Admin: 06/18/22 19:33 Dose: 3 ml Documented By: FEDE Ioversol (Optiray 320 500ml) 120 ml IV ONCE ONE Stop: 06/18/22 19:16 Last Admin: 06/18/22 19:15 Dose: 120 ml Documented By: PORFIRIO Methylprednisolone (Methylprednisolone 125 Mg/2 Ml Vial) 125 mg IV NOW STA Stop: 06/18/22 18:37 Last Admin: 06/18/22 18:42 Dose: 125 mg Documented By: AB Imaging Data Radiologist's Impression: Chest X-Ray 06/18/22 16:40 SINGLE VIEW CHEST CLINICAL HISTORY: Dyspnea FINDINGS: 2 AP, portable, upright chest radiographs are obtained. No prior studies are available for comparison at the time of dictation. The cardiomediastinal silhouette is unremarkable. The lungs and pleural spaces are clear. No pneumothorax is seen. The bony thorax is grossly intact. IMPRESSION: No active disease in the chest. ACT 112: Negative or not required by law. Electronically signed by: Edwardo Owens M.D. 06/18/2022 6:23 PM Chest CTA 06/18/22 18:55 Exam(s): CTA CHEST EXAM: CT Angiography Chest With Intravenous Contrast CLINICAL HISTORY: Reason for exam: PE. TECHNIQUE: Axial computed tomographic angiography images of the chest with intravenous contrast. Automated exposure control was utilized for the study. A dose lowering technique was utilized adhering to the principles of ALARA. MIP reconstructed images were created and reviewed. COMPARISON: None. FINDINGS: Pulmonary arteries: Unremarkable. No pulmonary embolism. Aorta: No acute findings. No thoracic aortic aneurysm. Lungs: There is diffuse lung consolidation involving the left lower lobe and lingular lobe consistent with multilobar pneumonia. Small patchy infiltrate within the anterior aspect of the right upper lobe near the apex. Remainder of the lung spicer are clear. Pleural space: Unremarkable. No significant effusion. No pneumothorax. Heart: Unremarkable. No cardiomegaly. No significant pericardial effusion. No evidence of RV dysfunction. Bones/joints: Mild spondylosis of thoracic spine. No acute fracture. No dislocation. Soft tissues: Unremarkable. Lymph nodes: Unremarkable. No enlarged lymph nodes. IMPRESSION: 1. No pulmonary embolus or aortic dissection. 2. Multilobar pneumonia as described above and more severely involving the left lower lobe. 3. No pleural effusion or pneumothorax. Electronically signed by: Aruna Singletary MD 06/18/22 20:06 PM Discharge Plan Visit Data Chief Complaint: Shortness of Breath/Dyspnea Stated Complaint: REF BY DOC,SOB,WHEEZING,O2 LOW, ED Provider: Radha Samson Discharge Problem: Acute dyspnea, Acute respiratory failure with hypoxia, Pneumonia Patient Disposition: Admitted As Inpatient Forms Stand Alone Forms: [facility] Prescriptions Prescriptions: No Action albuterol sulfate [Proventil HFA] 90 mcg/actuation HFA aerosol inhaler 2 puff inhalation Q6H PRN (Reason: wheezing) Qty: 6.7 1RF fluticasone propionate [Flonase Allergy Relief] 50 mcg/actuation spray,suspension 1 spray intranasal DAILY PRN (Reason: nasal congestion) Qty: 16 2RF Rx Instructions: administer into each nostril prednisone 20 mg tablet 40 mg PO DAILY Qty: 10 0RF benzonatate 200 mg capsule 200 mg PO TID PRN (Reason: cough) Qty: 30 0RF cetirizine [Zyrtec] 10 mg tablet 10 mg PO HS Referrals Referrals: Ever Vincent MD [Primary Care Provider] -
[2022-06-18] MEDS ORDERED: ALBUT/IPRATROP 3MG/0.5MG NEB 3 ML VIAL NEB STA (19:03)
[2022-06-18] MEDS ORDERED: OPTIRAY 320 500ml IV ONE (19:15)
--- NOTE | 2022-06-18 20:07 | CT Scan Report ---
Exam(s): CTA CHEST EXAM: CT Angiography Chest With Intravenous Contrast CLINICAL HISTORY: Reason for exam: PE. TECHNIQUE: Axial computed tomographic angiography images of the chest with intravenous contrast. Automated exposure control was utilized for the study. A dose lowering technique was utilized adhering to the principles of ALARA. MIP reconstructed images were created and reviewed. COMPARISON: None. FINDINGS: Pulmonary arteries: Unremarkable. No pulmonary embolism. Aorta: No acute findings. No thoracic aortic aneurysm. Lungs: There is diffuse lung consolidation involving the left lower lobe and lingular lobe consistent with multilobar pneumonia. Small patchy infiltrate within the anterior aspect of the right upper lobe near the apex. Remainder of the lung spicer are clear. Pleural space: Unremarkable. No significant effusion. No pneumothorax. Heart: Unremarkable. No cardiomegaly. No significant pericardial effusion. No evidence of RV dysfunction. Bones/joints: Mild spondylosis of thoracic spine. No acute fracture. No dislocation. Soft tissues: Unremarkable. Lymph nodes: Unremarkable. No enlarged lymph nodes. IMPRESSION: 1. No pulmonary embolus or aortic dissection. 2. Multilobar pneumonia as described above and more severely involving the left lower lobe. 3. No pleural effusion or pneumothorax. Electronically signed by: Aruna Singletary MD 06/18/22 20:06 PM
[2022-06-18] MEDS ORDERED: AZITHROMYCIN 250 MG TAB PO ONE (20:09)
[2022-06-18] MEDS ORDERED: cefTRIAXone SODIUM 1,000 MG in DEXTROSE 5% AD-VAN 50 ML IV STA (20:09)
--- NOTE | 2022-06-18 20:28 | History & Physical Report ---
Patient seen and examined. I agree with the history and physical and the plan as outlined in the resident's note. Date of Service June 18, 2022 Assessment & Plan (1) Pneumonia: (2) Acute respiratory failure with hypoxia: (3) Asthma: (4) Anxiety: (5) Acid reflux: Plan Left Lower Lobe Pneumonia w/ associated Hypoxia - Symptom onset Friday, developed into dyspnea last evening, and hypoxia today (85-87% at home) - CXR w/o evidence, CTA indicating lobar pneumonia greater on the left (w/o pulmonary embolism) - Patient hypoxic to 88% and tachycardic to 109, currently at SpO2 94% on 3L NC - Biofire panel pending, patient COVID and Flu negative - CBC, CMP, and Procal unremarkable - Incentive spirometry ordered - Rocephin 1g Q24h for 5 days and Azithromycin 500 mg Q24h for 3 days ordered - Biofire panel pending, patient COVID and Flu negative Chronic conditions: * Asthma - no chronic management, primarily exercise induced, uses albuterol PRN (2-3 times per year) * Anxiety - no chronic management, stable * Acid Reflux - no chronic management, asymptomatic History of Present Illness Chief Complaint: Shortness of Breath Primary Care Provider: Ever Vincent MD Jenny is a 37F with history of frequent sinus infections, anxiety, abdominal hernia, morbid obesity, acid reflux and asthma who presents for evaluation of shortness of braeth and is being admitted for acute hypoxia and pneumonia. Friday evening started feeling extremely fatigued, noted she had son's birthday democrat that day (has a 3 and 4 year old at home). That evening she felt like she was shivering and then developed full body aches. Friday, symptoms continued, home COVID testing was negative. Friday her PCP ordered a COIVD/Flu test, both of which were negative. Last night started coughing, this kept her up all night. This morning she felt like she was rattling when breathing. Saw PCP today who heard wheezing and prescribed steroids and Tessalon Perles. Took steroids, but went home and was feeling short of breath and felt like she couldn't draw in enough air. Checked pulse ox at home which was 85-87%, she subsequently came to the ER. Endorses fevers at home, max 103.7 at home (on Friday). No nausea or emesis, notes decreased appetite. Started w/ diarrhea last evening. Endorses headaches w/o lightheadedness or dizziness. Denies chest pain or pleuritic pain. Asthma is stable at baseline, only requiring albuterol 2-3 timers per year for exercise induced symptoms, no daily control medications. Patient notes that the medications she received in the ED have helped to 'open her lungs'. Patient has never smoked and does not drink alcohol. ER Course: Patient received albuterol and methylprednisolone in ER, Ceftriaxone and Azithromycin ordered Allergies Allergy/AdvReac Type Severity Reaction Status Date / Time adhesive Allergy Unknown redness Verified 06/18/22 09:36 Bactrim Allergy Unknown lip Verified 11/11/17 12:17 swelling/hives phenazopyridine Allergy Unknown swelling Verified 06/18/22 09:36 sulfamethoxazole Allergy Unknown lip Verified 06/18/22 09:36 swelling/hives trimethoprim Allergy Unknown lip Verified 06/18/22 09:36 swelling/hives robyn saline eye drops AdvReac Unknown eye/eyelid Uncoded 06/18/22 09:36 redness Home Medications Medication Instructions Recorded Confirmed Type cetirizine 10 mg tablet (Zyrtec) 10 mg PO HS 11/16/18 06/18/22 History albuterol sulfate 90 mcg/actuation 2 puff inhalation Q6H PRN wheezing 06/05/22 06/18/22 Rx aerosol inhaler (Proventil HFA) #6.7 grams fluticasone propionate 50 1 spray intranasal DAILY PRN nasal 06/05/22 06/18/22 Rx mcg/actuation nasal congestion #16 grams spray,suspension (Flonase Allergy Relief) benzonatate 200 mg capsule 200 mg PO TID PRN cough #30 caps 06/18/22 06/18/22 Rx prednisone 20 mg tablet 40 mg PO DAILY #10 tabs 06/18/22 06/18/22 Rx Past Med/Surg History Medical History (Updated 06/18/22 @ 21:18 by Sage Renae DO) Acid reflux Asthma exercise induced - rarely uses PRN inh Dermatographic urticaria Need for rhogam due to Rh negative mother Obesity Obesity affecting Supervision of normal intrauterine in multigravida Surgical History History of laparoscopy Previous delivery affecting S/P section S/P cholecystectomy S/P tonsillectomy S/P wisdom tooth extraction Status post breast reduction Made colostrum but not much milk after first Family History Grandmother (Paternal) Colorectal cancer Mother Hypertension Father Hypertension Grandmother (Maternal) Myocardial infarction Family/Other Breast cancer Uncle Aneurysm Other No family history of adverse response to anesthesia Denies family history of Ovarian cancer Prostate cancer Social History Smoking Status: Never smoker Second Hand Exposure: No; Hx Alcohol Use: No Hx Substance Use: No Preferred Language: Arabic Communication Ability: Effective Shoulder Boner Required: No Beliefs That Will Affect Care: None marital status: Current Living Situation: Spouse and Family Current Living Situation Comment: no pets current occupational status: unemployed current occupation: homemaker Feels Safe at Home: Yes Childhood Exposure to Second-Hand Smoke: No Dental Care, Regularly: Yes Physical Activity Frequency: Does not Exercise Seatbelt Use: always Sunscreen Use: Yes Assistive Devices: None Review of Systems Review of Systems: As per HPI Physical Exam Physical Exam: Gen: NAD, alert, interactive HEENT: Supple, no LAD, no thyromegaly, no JVD Resp:Non-labored, restricted air movement w/o wheezing/rhonchi/rales, CTAB CV:RRR, normal S1/S2, no M/R/G Abd: Soft, non-distended, no TTP, normoactive bowels, no masses Extr: 2+ dp bilaterally, no edema Skin: No rashes lesions or erythema Results & Data Results & Data ([facility]) Vital Signs (Past 12 Hours) Vital Signs Temp Pulse Pulse Resp BP BP Pulse Ox 06/18/22 19:58 94 06/18/22 19:52 85 L 06/18/22 19:44 109 H 22 130/63 94 06/18/22 19:35 95 H 06/18/22 19:33 100 H 24 100 06/18/22 18:51 90 20 145/78 H 94 06/18/22 18:18 06/18/22 18:00 88 L 06/18/22 16:40 06/18/22 17:41 99 H 20 183/84 H 93 06/18/22 16:37 36.5 C 105 H 20 135/80 92 O2 Del Method O2 Flow Rate 06/18/22 19:58 Nasal Cannula 3 06/18/22 19:52 Room Air 06/18/22 19:44 Room Air 06/18/22 19:35 06/18/22 19:33 Nebulizer 06/18/22 18:51 Nasal Cannula 2 06/18/22 18:18 Nasal Cannula 1 06/18/22 18:00 Room Air 1 06/18/22 16:40 Room Air 06/18/22 17:41 Room Air 06/18/22 16:37 Room Air Diagnostic Findings Chest X-Ray 06/18/22 16:40 SINGLE VIEW CHEST CLINICAL HISTORY: Dyspnea FINDINGS: 2 AP, portable, upright chest radiographs are obtained. No prior studies are available for comparison at the time of dictation. The cardiomediastinal silhouette is unremarkable. The lungs and pleural spaces are clear. No pneumothorax is seen. The bony thorax is grossly intact. IMPRESSION: No active disease in the chest. ACT 112: Negative or not required by law. Electronically signed by: Edwardo Owens M.D. 06/18/2022 6:23 PM Chest CTA 06/18/22 18:55 Exam(s): CTA CHEST EXAM: CT Angiography Chest With Intravenous Contrast CLINICAL HISTORY: Reason for exam: PE. TECHNIQUE: Axial computed tomographic angiography images of the chest with intravenous contrast. Automated exposure control was utilized for the study. A dose lowering technique was utilized adhering to the principles of ALARA. MIP reconstructed images were created and reviewed. COMPARISON: None. FINDINGS: Pulmonary arteries: Unremarkable. No pulmonary embolism. Aorta: No acute findings. No thoracic aortic aneurysm. Lungs: There is diffuse lung consolidation involving the left lower lobe and lingular lobe consistent with multilobar pneumonia. Small patchy infiltrate within the anterior aspect of the right upper lobe near the apex. Remainder of the lung spicer are clear. Pleural space: Unremarkable. No significant effusion. No pneumothorax. Heart: Unremarkable. No cardiomegaly. No significant pericardial effusion. No evidence of RV dysfunction. Bones/joints: Mild spondylosis of thoracic spine. No acute fracture. No dislocation. Soft tissues: Unremarkable. Lymph nodes: Unremarkable. No enlarged lymph nodes. IMPRESSION: 1. No pulmonary embolus or aortic dissection. 2. Multilobar pneumonia as described above and more severely involving the left lower lobe. 3. No pleural effusion or pneumothorax. Electronically signed by: Aruna Singletary MD 06/18/22 20:06 PM Code Status & VTE Plan Code Status Full Resident Activity Tracking Resident Involvement: Resident Care Provided Care Provided: Adult [facility] Medicine
[2022-06-18 20:47] LABS: Adenovirus PCR Not Detected (NotDetected); Bordetella parapertussis PCR Not Detected (NotDetected); Bordetella pertussis PCR Not Detected (NotDetected); Chlamydia pneumoniae PCR Not Detected (NotDetected); Coronavirus 229E PCR Not Detected (NotDetected); Coronavirus CoV-2 (COVID19)PCR Not Detected (NotDetected); Coronavirus HKU1 PCR Not Detected (NotDetected); Coronavirus NL63 PCR Not Detected (NotDetected); Coronavirus OC43PCR Not Detected (NotDetected); Influenza A PCR Not Detected (NotDetected); Influenza B PCR Not Detected (NotDetected); Mycoplasma pneumoniae PCR Not Detected (NotDetected); Parainfluenza Virus 1 PCR Not Detected (NotDetected); Parainfluenza Virus 2 PCR Not Detected (NotDetected); Parainfluenza Virus 3 PCR Not Detected (NotDetected); Parainfluenza Virus 4 PCR Not Detected (NotDetected); Respiratory Syncytial VirusPCR Not Detected (NotDetected); Rhinovirus/Enterovirus PCR Not Detected (NotDetected)
[2022-06-18 21:13] LABS: Human Metapneumovirus PCR DETECTED (NotDetected)
[2022-06-18] MEDS ORDERED: ACETAMINOPHEN 325 MG TAB PO PRN (22:54)
[2022-06-18] MEDS ORDERED: ALBUTEROL HFA 8 GM INHALER INH PRN (22:54)
[2022-06-18] MEDS: ALBUT/IPRATROP 3MG/0.5MG NEB 3 ML VIAL NEB SCH (23:21)
[2022-06-19] MEDS: ALBUT/IPRATROP 3MG/0.5MG NEB 3 ML VIAL NEB SCH ×6 (03:37→23:15)
[2022-06-19 08:25] LABS: Hematocrit (blood only) 40.8 % (37.0-47.0); Hemoglobin 13.6 g/dl (12.0-16.0); Mean Corpuscular Hemoglobin 29.7 pg (25.0-34.0); Mean Corpuscular Hgb Conc 33.3 g/dL (32.0-36.0); Mean Corpuscular Volume 89.1 fL (80.0-100.0); Mean Platelet Volume 10.8 fL (9.4-12.4); Platelet Count 283 K/uL (130-400); RDW Coefficient of Variation 13.2 % (11.5-14.5); RDW Standard Deviation 42.8 fL (36.4-46.3); Red Blood Count 4.58 M/uL (4.20-5.40); White Blood Count 5.57 K/ul (4.8-10.8)
[2022-06-19 08:41] LABS: Calcium 8.9 mg/dl (8.5-10.1); Creatinine Clr Calc Pharmacy 142.1 ml/min; Est GFR (African American) 109.2 ml/min; Est GFR (Non-African American) 94.2 ml/min; Potassium 3.6 mmol/L (3.5-5.1)
--- NOTE | 2022-06-19 14:02 | Hospitalist Progress Note ---
Date of Service June 19, 2022 Assessment & Plan (1) Pneumonia: Plan: Probably bacterial etiology but she may have a viral component. Metapneumovirus isolated in lab testing. She remains on intravenous Rocephin and azithromycin, day 2. No sputum for culture. Serial chest x-ray until clear (2) Acute respiratory failure with hypoxia: Plan: Supplemental oxygen to maintain saturation greater than 90%. Wean off as tolerated. She may need home oxygen for a while at discharge. (3) Morbid obesity: Plan: BMI greater than 40. Weight loss recommended (4) Asthma: Plan: Mild exacerbation acutely, noted with current pneumonia. She is on steroid therapy. Nebulizer treatments ordered. Plan Anticipate eventual discharge to home later this week. She may need home oxygen for a while Admission and Anticipated Discharge Date Admission Date: June 18, 2022 Subjective Alert and oriented. No acute distress. Metapneumovirus isolated. Difficult to say if this is responsible for the multilobar left-sided pneumonia changes. Suspect bacterial component. She remains on intravenous Rocephin and azithromycin. She continues to require oxygen which will eventually be weaned off. She may need home oxygen for a while at discharge. Review of Systems Review of Systems: Constitutional-no fever or chills ENT-no blurred vision, no double vision, no epistaxis, no sore throat Respiratory-nonproductive cough. Dyspnea on exertion. No hemoptysis. No wheezing. Cardiac-no palpitations, no chest pain, no syncope GI-no nausea, vomiting, diarrhea, melena, hematochezia -no urinary retention, no urinary incontinence, no dysuria, no hematuria Musculoskeletal-no joint pain, no muscle tenderness Skin-no bruising, no rashes, no pruritus Neuro-no isolated weakness, no paresthesia, no weakness Psych-no depression, no anxiety Physical Exam Physical Exam: General-alert and oriented x3, no fevers, no chills HEENT-head atraumatic and normocephalic, pupils equal and reactive to light, extraocular muscles intact Neck-no lymphadenopathy or thyromegaly, trachea midline Chest-scattered bilateral rhonchi. Faint end expiratory wheezing. No dullness to percussion Cardiac-regular rate and rhythm, normal S1 and S2 Abdomen-normal bowel sounds, nontender, no hepatosplenomegaly Extremities-no cyanosis, clubbing, or edema Neuro-cranial nerves II through XII intact, motor and sensory function within normal limits, strength symmetrical , no focal deficits Psych-normal affect, normal mood Results & Data Results & Data ([facility]) Vital Signs (Past 12 Hours) Vital Signs Temp Pulse Pulse Resp BP Pulse Ox O2 Del Method 06/19/22 11:08 91 H 18 92 Nasal Cannula 06/19/22 08:20 Nasal Cannula 06/19/22 08:32 16 96 Nasal Cannula 06/19/22 07:40 36.4 C L 100 H 18 111/72 90 Nasal Cannula 06/19/22 07:12 87 18 96 Nasal Cannula 06/19/22 03:37 90 18 90 Nasal Cannula O2 Flow Rate 06/19/22 11:08 3 06/19/22 08:20 2 06/19/22 08:32 2 06/19/22 07:40 3 06/19/22 07:12 3 06/19/22 03:37 3 Laboratory Results 06/19/22 07:32 06/19/22 07:32 PG Care Time/CCT Total # of Minutes Spent Total Time Spent with Patient: Total time spent is greater than 50% in coordination of care (as documented) at patient's floor/unit and/or counseling patient: Coding Level of Care Code 02063 SUB INP/OBS CARE 3/50MIN Diagnoses Pneumonia J18.9 Acute respiratory failure with hypoxia J96.01 Morbid obesity E66.01 Asthma J45.909
[2022-06-19] MEDS: cefTRIAXone SODIUM 2,000 MG in DEXTROSE 5% 50 ML IV SCH (18:17)
[2022-06-19] MEDS: AZITHROMYCIN 500 MG in DEXTROSE 5% 250 ML IV SCH (19:35)
[2022-06-20] MEDS: ALBUT/IPRATROP 3MG/0.5MG NEB 3 ML VIAL NEB SCH ×6 (03:00→22:32)
--- NOTE | 2022-06-20 05:48 | Electrocardiogram Report ---
Test Reason : Blood Pressure : / mmHG Vent. Rate : 101 BPM Atrial Rate : 101 BPM P-R Int : 156 ms QRS Dur : 082 ms QT Int : 336 ms P-R-T Axes : 050 032 036 degrees QTc Int : 435 ms Sinus tachycardia Otherwise normal ECG No previous ECGs available Confirmed by Gee Castillo ([id number]) on 06/20/2022 5:48:08 AM Referred By: Ever Cortes Confirmed By:Gee Castillo
[2022-06-20] MEDS ORDERED: CALCIUM CARBONATE 500 MG CHEWABLE TAB PO PRN (11:08)
[2022-06-20] MEDS ORDERED: predniSONE 20 MG TAB PO STA (15:24)
--- NOTE | 2022-06-20 15:33 | Hospitalist Progress Note ---
Date of Service June 20, 2022 Assessment & Plan (1) Pneumonia: Plan: Probably bacterial etiology but she may have a viral component. Metapneumovirus isolated in lab testing. She remains on intravenous Rocephin and azithromycin, day 3. No sputum for culture. (2) Acute respiratory failure with hypoxia: Plan: Oxygen has been weaned off. She was told she may experience some shortness of breath with exertion however for another week or 2. It does not appear that she will need any home oxygen at discharge (3) Morbid obesity: Plan: BMI greater than 40. Weight loss recommended (4) Asthma: Plan: Wheezing has worsened despite improvement in oxygen saturation. Oral prednisone started. Will discharge on tapering dose hopefully tomorrow. Continue nebulizer treatments Plan Hopeful discharge to home tomorrow, June 21 Admission and Anticipated Discharge Date Admission Date: June 18, 2022 Subjective The patient looks and feels better. She is now on room air. She has some exace rbation of underlying asthma with wheezing. Oral prednisone has been started. Hopefully she can go home tomorrow, June 21 with an oral antibiotic and prednisone tapering dose Review of Systems Review of Systems: Constitutional-no fever or chills ENT-no blurred vision, no double vision, no epistaxis, no sore throat Respiratory-nonproductive cough. Dyspnea on exertion. No hemoptysis. Now wheezing. Cardiac-no palpitations, no chest pain, no syncope GI-no nausea, vomiting, diarrhea, melena, hematochezia -no urinary retention, no urinary incontinence, no dysuria, no hematuria Musculoskeletal-no joint pain, no muscle tenderness Skin-no bruising, no rashes, no pruritus Neuro-no isolated weakness, no paresthesia, no weakness Psych-no depression, no anxiety Physical Exam Physical Exam: General-alert and oriented x3, no fevers, no chills HEENT-head atraumatic and normocephalic, pupils equal and reactive to light, extraocular muscles intact Neck-no lymphadenopathy or thyromegaly, trachea midline Chest-scattered bilateral rhonchi. Bilateral expiratory wheezes. No dullness to percussion Cardiac-regular rate and rhythm, normal S1 and S2 Abdomen-normal bowel sounds, nontender, no hepatosplenomegaly Extremities-no cyanosis, clubbing, or edema Neuro-cranial nerves II through XII intact, motor and sensory function within normal limits, strength symmetrical , no focal deficits Psych-normal affect, normal mood Results & Data Results & Data ([facility]) Vital Signs (Past 12 Hours) Vital Signs Temp Pulse Pulse Resp BP Pulse Ox O2 Del Method 06/20/22 15:11 91 H 18 92 Room Air 06/20/22 15:08 36.8 C 94 H 16 114/61 95 Room Air 06/20/22 10:21 104 H 18 92 Room Air 06/20/22 07:53 36.9 C 65 16 102/67 96 Nasal Cannula 06/20/22 07:32 Room Air 06/20/22 07:11 73 16 96 Nasal Cannula O2 Flow Rate 06/20/22 15:11 06/20/22 15:08 06/20/22 10:21 06/20/22 07:53 1 06/20/22 07:32 06/20/22 07:11 1 Laboratory Results 06/19/22 07:32 06/19/22 07:32 PG Care Time/CCT Total # of Minutes Spent Total Time Spent with Patient: Total time spent is greater than 50% in coordination of care (as documented) at patient's floor/unit and/or counseling patient: Coding Level of Care Code 47303 SUB INP/OBS CARE 3/50MIN Diagnoses Pneumonia J18.9 Acute respiratory failure with hypoxia J96.01 Morbid obesity E66.01 Asthma J45.909
[2022-06-20] MEDS: cefTRIAXone SODIUM 2,000 MG in DEXTROSE 5% 50 ML IV SCH (18:10)
[2022-06-20] MEDS: predniSONE 20 MG TAB PO SCH (20:00)
[2022-06-20] MEDS: AZITHROMYCIN 500 MG in DEXTROSE 5% 250 ML IV SCH (20:52)
[2022-06-21] MEDS: ALBUT/IPRATROP 3MG/0.5MG NEB 3 ML VIAL NEB SCH ×3 (02:30→12:27)
[2022-06-21] MEDS: predniSONE 20 MG TAB PO SCH (08:47)
--- NOTE | 2022-06-21 11:21 | Discharge Summary ---
Date of Service June 21, 2022 Admission HPI Per Admitting Provider Jenny is a 37F with history of frequent sinus infections, anxiety, abdominal hernia, morbid obesity, acid reflux and asthma who presents for evaluation of shortness of braeth and is being admitted for acute hypoxia and pneumonia. Friday evening started feeling extremely fatigued, noted she had son's birthday republican that day (has a 3 and 4 year old at home). That evening she felt like she was shivering and then developed full body aches. Friday, symptoms continued, home COVID testing was negative. Friday her PCP ordered a COIVD/Flu test, both of which were negative. Last night started coughing, this kept her up all night. This morning she felt like she was rattling when breathing. Saw PCP today who heard wheezing and prescribed steroids and Tessalon Perles. Took steroids, but went home and was feeling short of breath and felt like she couldn't draw in enough air. Checked pulse ox at home which was 85-87%, she subsequently came to the ER. Endorses fevers at home, max 103.7 at home (on Friday). No nausea or emesis, notes decreased appetite. Started w/ diarrhea last evening. Endorses headaches w/o lightheadedness or dizziness. Denies chest pain or pleuritic pain. Asthma is stable at baseline, only requiring albuterol 2-3 timers per year for exercise induced symptoms, no daily control medications. Patient notes that the medications she received in the ED have helped to 'open her lungs'. Patient has never smoked and does not drink alcohol. ER Course: Patient received albuterol and methylprednisolone in ER, Ceftriaxone and Azithromycin ordered Principal Diagnosis Suspected combined bacterial and viral pneumonia, acute exacerbation asthma, acute hypoxic respiratory failure Discharge Exam General-alert and oriented x3, no fevers, no chills HEENT-head atraumatic and normocephalic, pupils equal and reactive to light, extraocular muscles intact Neck-no lymphadenopathy or thyromegaly, trachea midline Chest-scattered bilateral rhonchi are improved. Bilateral expiratory wheezes have nearly totally resolved. No dullness to percussion Cardiac-regular rate and rhythm, normal S1 and S2 Abdomen-normal bowel sounds, nontender, no hepatosplenomegaly Extremities-no cyanosis, clubbing, or edema Neuro-cranial nerves II through XII intact, motor and sensory function within normal limits, strength symmetrical , no focal deficits Psych-normal affect, normal mood Discharge Data Allergies Allergy/AdvReac Type Severity Reaction Status Date / Time adhesive Allergy Unknown redness Verified 06/18/22 09:36 Bactrim Allergy Unknown lip Verified 11/11/17 12:17 swelling/hives phenazopyridine Allergy Unknown swelling Verified 06/18/22 09:36 sulfamethoxazole Allergy Unknown lip Verified 06/18/22 09:36 swelling/hives trimethoprim Allergy Unknown lip Verified 06/18/22 09:36 swelling/hives robyn saline eye drops AdvReac Unknown eye/eyelid Uncoded 06/18/22 09:36 redness Consultations 06/18/22 19:58 ED Decision to Admit Stat Ordered Studies 06/18/22 18:55 CT for pulmonary embolism PE [CT angio chest PE protocol] Stat Hospital Course (1) Pneumonia: Probably bacterial etiology but she may have a viral component. Metapneumovirus isolated in lab testing. Treated while hospitalized [id number] Rocephin and azithromycin, day 3. Home on oral azithromycin. (2) Acute respiratory failure with hypoxia: Oxygen has been weaned off. She was told she may experience some shortness of breath with exertion however for another week or 2. It does not appear that she will need any home oxygen at discharge (3) Morbid obesity: BMI greater than 40. Weight loss recommended (4) Asthma: Wheezing has responded nicely to steroid therapy. Will discharge on a tapering dose of prednisone. Continue nebulizer treatments while hospitalized Plan Home today, June 21, on azithromycin and prednisone tapering dose. She will use her home albuterol inhaler 3 times daily until wheezing completely resolves Total Time Total Time Spent Total Time Spent (In Minutes): 40 minutes Discharge Plan Discharge Items Patient Disposition: Home - Self-Care Reason For Visit: DYSPNEA Discharge Diagnosis: Left multilobar pneumonia of bacterial and viral etiology, acute hypoxic respiratory failure, acute exacerbation intrinsic asthma Activity: Resume your previous activity Non-emergency contact: Primary Care Provider Call non-emergency contact if: you have any medication questions Follow-up/Referrals: Ever Vincent MD [Primary Care Provider] - Diet: Regular Addtl Attending Provider Instructions: Take azithromycin for 5 more days. Take prednisone in a tapering dose fashion as prescribed. Use albuterol inhaler 3 times daily until wheezing completely resolves Pending Studies at Discharge: No Stand-Alone Forms: My Zigabid, Smoking Cessation Medications and DC Order Prescriptions: New azithromycin 250 mg tablet 250 mg PO DAILY 5 Days Qty: 5 0RF prednisone 10 mg tablet See Rx Instructions .ROUTE .COMPLEX Qty: 12 0RF Rx Instructions: 10 mg orally 3 times a day for 2 days, then 10 mg twice a day for 2 days, then 10 mg daily for 2 days, then stop Continued albuterol sulfate [Proventil HFA] 90 mcg/actuation HFA aerosol inhaler 2 puff inhalation Q6H PRN (Reason: wheezing) Qty: 6.7 1RF fluticasone propionate [Flonase Allergy Relief] 50 mcg/actuation spr ay,suspension 1 spray intranasal DAILY PRN (Reason: nasal congestion) Qty: 16 2RF Rx Instructions: administer into each nostril prednisone 20 mg tablet 40 mg PO DAILY Qty: 10 0RF benzonatate 200 mg capsule 200 mg PO TID PRN (Reason: cough) Qty: 30 0RF cetirizine [Zyrtec] 10 mg tablet 10 mg PO HS Discharge Orders: Discharge Order (Routine); Ordered 06/21/22 Ordered By: Serafin Wood Admission Data Admit Date/Time: 06/18/22 21:10 Attending Provider: Serafin Wood Admit Provider: Sage Renae Primary Care Provider: Ever Vincent V. Other Providers: Turner Xiao Coding Level of Care Code 95696 INP/OBS DISCH >30 MIN Diagnoses Pneumonia J18.9 Acute respiratory failure with hypoxia J96.01 Morbid obesity E66.01 Asthma J45.909
== END 2022-06-21 13:07 | disposition home or self-care (01) | DRG 193 ==
LOC: ED 16:31 → SUATTDRO 21:10 → 3W 21:10